=== PATIENT | female | born 1980 | race Caucasian/White ===

== ENCOUNTER 2018-04-15 12:43 | Observation (INO) | payer BC ==
[2018-04-15 13:42] LABS: Absolute Lymphocytes (CBC) 2.4 K/uL (0.7-4.9); Absolute Monocytes 0.5 K/uL (0.1-1.3); Absolute Neutrophil 5.3 K/uL (1.8-8.0); Basophils % 0.3 % (0-1.3); Eosinophils % 1.1 % (0-4.4); Hematocrit 34.7 % (36.0-45.0); Lymphocytes % 29.1 % (15.3-44.8); MCH 27.5 pg (27.0-35.0); MCV 79.3 fL (80-100); MPV 6.7 fL (7.6-11.3); Monocytes % 5.6 % (3.3-12.3); RBC Red Blood Cell Count 4.38 M/uL (3.86-4.86)
[2018-04-15] MEDS ORDERED: FENTANYL CITR 100 MCG/2 ML ONE (13:55)
[2018-04-15] MEDS ORDERED: ASPIRIN 81 MG CHEWABLE TABLET ONE (13:55)
[2018-04-15] MEDS ORDERED: ONDANSETRON 4 MG/2 ML VIAL ONE (13:55)
[2018-04-15 14:11] LABS: Urine Blood TRACE (NEG); Urine Glucose NEGATIVE (NEG); Urine Protein NEGATIVE (NEG); Urine Specific Gravity 1.015 (1.005-1.030); Urine pH 6.5 (5.0-7.0)
[2018-04-15 14:14] LABS: ALT/SGPT 24 U/L (12-78); AST/SGOT 25 U/L (15-37); Albumin 3.2 g/dL (3.4-5.0); Alkaline Phosphatase 116 U/L (45-117); BUN Blood Urea Nitrogen 13 mg/dL (7-18); Bicarbonate 25 mmol/L (21-32); Bilirubin Direct < 0.1 mg/dL (0-0.2); Bilirubin Total 0.2 mg/dL (0.2-1.0); Glucose Level 110 mg/dL (74-106); Magnesium 2.1 mg/dL (1.8-2.4); NT PRO-BNP 174 pg/mL (<125); Potassium 3.7 mmol/L (3.5-5.1); Protein, Total 7.1 g/dL (6.4-8.2); Sodium Level 140 mmol/L (136-145)
[2018-04-15 14:29] LABS: Protime INR 0.96
--- NOTE | 2018-04-15 15:12 | ER ---
Nurse's Notes [facility] Name: Argelia Allan Age: 37 yrs Sex: Female : 1980 Arrival Date: 04/15/2018 Time: 12:43 Bed 23 Private MD: Lisette Calero K Diagnosis: Chest pain, unspecified Presentation: 04/15 12:52 Presenting complaint: Patient states: Sharp left sided chest pain that radiates to left hb arm and nausea that started approx 20 mins ago while driving. Transition of care: patient was not received from another setting of care. Onset of symptoms was April 15, 2018. Risk Assessment: Do you want to hurt yourself or someone else? Patient reports no desire to harm self or others. Care prior to arrival: None. 12:52 Method Of Arrival: Ambulatory hb 12:52 Acuity: ESTELA 3 hb 13:00 Initial Sepsis Screen: Does the patient meet any 2 criteria? No. Patient's initial kr2 sepsis screen is negative. Does the patient have a suspected source of infection? No. Patient's initial sepsis screen is negative. NETWORK MANAGER: 15:58 LMP N/A - control method kr2 Historical: - Allergies: 12:53 No Known Allergies; hb - Home Meds: 12:53 None [Active]; hb - PMHx: 12:53 None; hb - PSHx: 12:53 ; Tonsillectomy; foot - left; thyroid; hb - Immunization history:: Adult Immunizations up to date. - Social history:: Smoking status: Patient/guardian denies using tobacco. - Ebola Screening: : No symptoms or risks identified at this time. Screenin:00 Abuse screen: Denies threats or abuse. Denies injuries from another. Nutritional kr2 screening: No deficits noted. Tuberculosis screening: No symptoms or risk factors identified. Fall Risk None identified. Assessment: 13:00 General: Appears in no apparent distress. uncomfortable, obese, well groomed, well kr2 developed, Behavior is calm, cooperative, appropriate for age. Pain: Complains of pain in anterior aspect of left upper chest Pain radiates to anterior aspect of left shoulder and left bicep Pain currently is 6 out of 10 on a pain scale. Quality of pain is described as sharp, Pain began 30 min ago. Is continuous, Alleviated by nothing. Neuro: Level of Consciousness is awake, alert, obeys commands, Oriented to person, place, time, situation. Cardiovascular: Heart tones S1 S2 Capillary refill < 3 seconds in bilateral fingers Patient's skin is warm and dry. Rhythm is sinus rhythm. Respiratory: Airway is patent Respiratory effort is even, unlabored, Respiratory pattern is regular, symmetrical. GI: Abdomen is flat, non-distended. : Urine is clear. EENT: Oral mucosa is moist. Derm: Skin is intact, is healthy with good turgor, Skin is pink, warm \T\ dry. Musculoskeletal: Circulation, motion, and sensation intact. 14:08 Reassessment: Patient appears in no apparent distress at this time. Patient and/or kr2 family updated on plan of care and expected duration. Pain level reassessed. Patient is alert, oriented x 3, equal unlabored respirations, skin warm/dry/pink. 15:05 Reassessment: Patient appears in no apparent distress at this time. Patient and/or kr2 family updated on plan of care and expected duration. Pain level reassessed. Patient sleeping at this time. Vital Signs: 12:52 BP 127 / 86; Pulse 71; Resp 14; Temp 97.5; Pulse Ox 100% on R/A; Pain 6/10; hb 14:00 BP 112 / 68 LA Sitting (auto/reg); Pulse 55; Resp 17 S; Pulse Ox 99% on R/A; jp3 14:09 BP 112 / 68; Pulse 64; Resp 14; Pulse Ox 97% on R/A; kr2 15:53 BP 105 / 63; Pulse 64; Resp 15; Temp 97.7; Pulse Ox 98% on R/A; kr2 ED Course: 12:43 Patient arrived in ED. sb2 12:44 Lisette Calero MD is Private Physician. sb2 12:52 Triage completed. hb 12:53 Arm band placed on right wrist. hb 12:54 Aleja Coyle RN is Primary Nurse. kr2 13:00 Patient maintains SpO2 saturation greater than 95% on room air. kr2 13:07 Martín Fuentes PA is PHCP. jr8 13:07 Juan Marina MD is Attending Physician. jr8 13:15 Urine collected: clean catch specimen, clear, travis colored. jp3 13:25 Initial lab(s) drawn, by me, sent to lab. Inserted saline lock: 22 gauge in right jp3 forearm, using aseptic technique. Blood collected. 13:37 Placed in gown. Bed in low position. Call light in reach. Side rails up X 1. jp3 13:37 Warm blanket given. Pillow given. jp3 13:47 Pulse ox on. NIBP on. jp3 14:38 Troponin (emerg Dept Use Only) Sent. jp3 14:38 PT-INR Sent. jp3 14:38 NT PRO-BNP Sent. jp3 14:38 Magnesium Sent. jp3 14:39 Basic Metabolic Panel Sent. jp3 14:39 CBC with Diff Sent. jp3 14:39 LFT's Sent. jp3 14:59 X-ray completed. Portable x-ray completed in exam room. Patient tolerated procedure jb2 well. 15:12 Raúl North DO is Hospitalizing Provider. jr8 15:57 No provider procedures requiring assistance completed. Patient admitted, IV remains in kr2 place. Administered Medications: 14:04 Drug: Aspirin Chewable Tablet 324 mg Route: PO; kr2 15:53 Follow up: Response: No adverse reaction kr2 14:04 Drug: fentaNYL (PF) 25 mcg Route: IVP; Site: right forearm; kr2 14:30 Follow up: Response: No adverse reaction; Pain is decreased kr2 14:05 Drug: Zofran 4 mg Route: IVP; Site: right forearm; kr2 14:30 Follow up: Response: No adverse reaction; Nausea is decreased kr2 Outcome: 15:12 Decision to Hospitalize by Provider. jr8 15:58 Admitted to Tele accompanied by [facility], via wheelchair, room 205, with chart, Report kr2 called to Maeve 15:58 Condition: stable 15:58 Instructed on the need for admit, Demonstrated understanding of instructions. 15:59 Patient left the ED. kr2 Signatures: Michael Patel jb2 Martín Fuentes PA PA jr8 Rachel Murillo, RN RN Aleja Mcgrath RN RN kr2 Malika Patrick sb2 Reji Shelton jp3 Corrections: (The following items were deleted from the chart) 15:52 15:52 Response: No adverse reaction; Pain is decreased kr2 kr2
--- NOTE | 2018-04-15 15:12 | EDPHYS ---
Physician Documentation [facility] Name: Argelia Allan Age: 37 yrs Sex: Female : 1980 Arrival Date: 04/15/2018 Time: 12:43 Bed 23 Private MD: Lisette Calero K ED Physician Juan Marina HPI: 04/15 13:28 This 37 yrs old Female presents to ER via Ambulatory with complaints of Chest jr8 Pain. 13:28 The patient or guardian reports chest pain that is located primarily in the anterior jr8 chest wall, left. The pain radiates to the left arm. Associated signs and symptoms: Pertinent positives: dizziness, nausea. The chest pain is described as squeezing, stabbing. Duration: The patient or guardian reports a single episode, that is still ongoing, that lasted 45 minute(s). Modifying factors: The symptoms are alleviated by nothing. the symptoms are aggravated by nothing. Severity of pain: At its worst the pain was moderate in the emergency department the pain has improved mildly. The patient has not experienced similar symptoms in the past. The patient has not recently seen a physician. Was at rest when pain started . BELL VALET: 15:58 LMP N/A - control method kr2 Historical: - Allergies: 12:53 No Known Allergies; hb - Home Meds: 12:53 None [Active]; hb - PMHx: 12:53 None; hb - PSHx: 12:53 ; Tonsillectomy; foot - left; thyroid; hb - Immunization history:: Adult Immunizations up to date. - Social history:: Smoking status: Patient/guardian denies using tobacco. - Ebola Screening: : No symptoms or risks identified at this time. ROS: 13:28 Eyes: Negative for injury, pain, redness, and discharge, ENT: Negative for injury, jr8 pain, and discharge, Neck: Negative for injury, pain, and swelling, Respiratory: Negative for shortness of breath, cough, wheezing, and pleuritic chest pain, Abdomen/GI: Negative for abdominal pain, nausea, vomiting, diarrhea, and constipation, Back: Negative for injury and pain, MS/Extremity: Negative for injury and deformity, Skin: Negative for injury, rash, and discoloration. 13:28 Cardiovascular: Positive for chest pain, Negative for edema, orthopnea, palpitations, paroxysmal nocturnal dyspnea. 13:28 Neuro: Positive for dizziness, Negative for altered mental status, gait disturbance, headache, hearing loss, loss of consciousness, numbness, seizure activity, speech changes, syncope, near syncope, tingling, tinnitus, tremor, visual changes, weakness. Exam: 13:28 Eyes: Pupils equal round and reactive to light, extra-ocular motions intact. Lids and jr8 lashes normal. Conjunctiva and sclera are non-icteric and not injected. Cornea within normal limits. Periorbital areas with no swelling, redness, or edema. ENT: Nares patent. No nasal discharge, no septal abnormalities noted. Tympanic membranes are normal and external auditory canals are clear. Oropharynx with no redness, swelling, or masses, exudates, or evidence of obstruction, uvula midline. Mucous membranes moist. Neck: Trachea midline, no thyromegaly or masses palpated, and no cervical lymphadenopathy. Supple, full range of motion without nuchal rigidity, or vertebral point tenderness. No Meningismus. Chest/axilla: Normal chest wall appearance and motion. Nontender with no deformity. No lesions are appreciated. Cardiovascular: Regular rate and rhythm with a normal S1 and S2. No gallops, murmurs, or rubs. Normal PMI, no JVD. No pulse deficits. Respiratory: Lungs have equal breath sounds bilaterally, clear to auscultation and percussion. No rales, rhonchi or wheezes noted. No increased work of breathing, no retractions or nasal flaring. Abdomen/GI: Soft, non-tender, with normal bowel sounds. No distension or tympany. No guarding or rebound. No evidence of tenderness throughout. Back: No spinal tenderness. No costovertebral tenderness. Full range of motion. Skin: Warm, dry with normal turgor. Normal color with no rashes, no lesions, and no evidence of cellulitis. MS/ Extremity: Pulses equal, no cyanosis. Neurovascular intact. Full, normal range of motion. Neuro: Awake and alert, GCS 15, oriented to person, place, time, and situation. Cranial nerves II-XII grossly intact. Motor strength 5/5 in all extremities. Sensory grossly intact. Cerebellar exam normal. Normal gait. Vital Signs: 12:52 BP 127 / 86; Pulse 71; Resp 14; Temp 97.5; Pulse Ox 100% on R/A; Pain 6/10; hb 14:00 BP 112 / 68 LA Sitting (auto/reg); Pulse 55; Resp 17 S; Pulse Ox 99% on R/A; jp3 14:09 BP 112 / 68; Pulse 64; Resp 14; Pulse Ox 97% on R/A; kr2 15:53 BP 105 / 63; Pulse 64; Resp 15; Temp 97.7; Pulse Ox 98% on R/A; kr2 MDM: 13:[address] [facility] 15:11 HEART Score: History: Moderately Suspicious (1), ECG: Normal (0), Age: < or = [address] [facility] (0), Risk Factors: 1 or 2 risk factors (1), [+ Family HX] [Obesity] Troponin: < or = 1 x Normal Limit (0). Data reviewed: vital signs, nurses notes, lab test result(s), EKG, radiologic studies, plain films, and as a result, I will admit patient. Data interpreted: Pulse oximetry: on room air is 97 %. Interpretation: normal. Counseling: I had a detailed discussion with the patient and/or guardian regarding: the historical points, exam findings, and any diagnostic results supporting the discharge/admit diagnosis, lab results, radiology results, the need for further work-up and treatment in the hospital. 04/15 13:15 Order name: Urine Dipstick--Ancillary (enter results) 04/15 13:16 Order name: Basic Metabolic Panel [facility] 04/15 13:16 Order name: CBC with Diff [facility] 04/15 13:16 Order name: LFT's [facility] 04/15 13:16 Order name: Magnesium [facility] 04/15 13:16 Order name: NT PRO-BNP [facility] 04/15 13:16 Order name: PT-INR [facility] 04/15 13:16 Order name: Troponin (emerg Dept Use Only) [facility] 04/15 13:47 Order name: CBC with Automated Diff; Complete Time: 13:49 EDMS 04/15 14:09 Order name: Test, Urine; Complete Time: 14:52 EDMS 04/15 14:11 Order name: Urine Dipstick-Ancillary; Complete Time: 14:52 EDMS 04/15 14:11 Order name: Troponin (Emerg Dept Use Only); Complete Time: 14:52 EDMS 04/15 14:14 Order name: Basic Metabolic Panel; Complete Time: 14:52 EDMS 04/15 14:14 Order name: Liver (Hepatic) Function; Complete Time: 14:52 EDMS 04/15 13:16 Order name: XRAY Chest (1 view) [facility] 04/15 13:16 Order name: EKG; Complete Time: 13:17 [facility] 04/15 13:16 Order name: Cardiac monitoring; Complete Time: 13:46 [facility] 04/15 13:16 Order name: EKG - Nurse/Tech; Complete Time: 13:46 04/15 13:16 Order name: IV Saline Lock; Complete Time: 13:46 [facility] 04/15 13:16 Order name: Labs collected and sent; Complete Time: 13:46 [facility] 04/15 13:16 Order name: O2 Per Protocol; Complete Time: 13:46 04/15 13:16 Order name: O2 Sat Monitoring; Complete Time: 13:46 [facility] 04/15 13:16 Order name: Urine Dipstick-Ancillary (obtain specimen); Complete Time: 13:47 04/15 13:16 Order name: Urine Test (obtain specimen); Complete Time: 14:21 [facility] 04/15 14:14 Order name: NT PRO-BNP; Complete Time: 14:52 EDMS 04/15 14:14 Order name: Magnesium; Complete Time: 14:52 EDMS 04/15 14:31 Order name: Protime (+INR); Complete Time: 14:52 EDMS Administered Medications: 14:04 Drug: Aspirin Chewable Tablet 324 mg Route: PO; kr2 15:53 Follow up: Response: No adverse reaction kr2 14:04 Drug: fentaNYL (PF) 25 mcg Route: IVP; Site: right forearm; kr2 14:30 Follow up: Response: No adverse reaction; Pain is decreased kr2 14:05 Drug: Zofran 4 mg Route: IVP; Site: right forearm; kr2 14:30 Follow up: Response: No adverse reaction; Nausea is decreased kr2 Disposition: 19:06 Co-signature as Attending Physician, Juan Marina MD. rn Disposition: 04/15/18 15:12 Hospitalization ordered by Raúl North for Observation. Preliminary diagnosis is Chest pain, unspecified. - Bed requested for Telemetry/MedSurg (observation). - Status is Observation. kr2 - Condition is Stable. - Problem is new. - Symptoms have improved. UTI on Admission? No Signatures: Dispatcher [employer] EDDominique Christina RN RN dw Juan Marina MD MD rn Roszak, Josh, PA PA jr8 Rachel Murillo RN RN Aleja Coyle RN RN kr2 Corrections: (The following items were deleted from the chart) 15:41 15:12 Hospitalization Ordered by Raúl North DO for Observation. Preliminary dw diagnosis is Chest pain, unspecified. Bed requested for Telemetry/MedSurg (observation). Status is Observation. Condition is Stable. Problem is new. Symptoms have improved. UTI on Admission? No. jr8 15:59 15:41 04/15/2018 15:12 Hospitalization Ordered by Raúl North DO for Observation. kr2 Preliminary diagnosis is Chest pain, unspecified. Bed requested for Telemetry/MedSurg (observation). Status is Observation. Condition is Stable. Problem is new. Symptoms have improved. UTI on Admission? No. dw
[2018-04-15] MEDS ORDERED: TRAMADOL HCL 50 MG TAB PO PRN (15:18)
[2018-04-15] MEDS ORDERED: ACETAMINOPHEN 500 MG TAB PO PRN (15:18)
[2018-04-15] MEDS ORDERED: ONDANSETRON 4 MG/2 ML VIAL IV PRN (15:18)
[2018-04-15] MEDS ORDERED: HYDROCODONE/APAP 7.5/325 MG TAB PO PRN (15:18)
--- NOTE | 2018-04-15 15:28 | P.HP ---
Certification for Inpatient Patient admitted to: Observation With expected LOS: <2 Midnights Patient will require the following post-hospital care: None Practitioner: I am a practitioner with admitting privileges, knowledge of patient current condition, hospital course, and medical plan of care. Services: Services provided to patient in accordance with Admission requirements found in Title 42 Section 412.3 of the Code of Federal Regulations Patient History Date of Service: 04/15/18 Primary Care Provider: Dr. Calero Reason for admission: Chest pain History of Present Illness: 37-year-old female presented emergency room with chest pain. This started this afternoon. It was mainly to the left chest side area. Pain would moved to the left arm with notable left arm numbness. The pain was a tightness. He was associated with some shortness of breath, nausea. She did feel somewhat dizzy at the time of chest pain. She came to the ER for further evaluation. In the ER patient was evaluated. Initial EKG unremarkable. Cardiac enzymes unremarkable. Due to the nature of her symptoms the patient was admitted for observation. When I saw the patient ER, she appeared comfortable. There is a family history of heart disease. She does not smoke. She drinks occasionally. Allergies No Known Allergies Allergy (Verified 01/28/13 05:57) Home medications list reviewed: Yes Home Medications: Ferrous Sulfate [Iron] 325 mg PO DAILY 01/28/13 Pnv Cmb#95/Ferrous Fumarate/FA [ Tablet] 1 each PO DAILY 01/28/13 Ranitidine [Zantac*] 150 mg PO BID 01/28/13 - Past Medical/Surgical History Diabetic: No Past Medical History: Patient denies medical history -: Tonsillectomy -: Foot surgery -: x2 -: Partial thyroidectomy Psychosocial/ Personal History: The patient is . She has 2 children. She works at a tennis camp instructor's office - Family History Father -: Diabetes Mother -: Heart disease - Social History Smoking Status: Never smoker Alcohol use: No CD- Drugs: No Caffeine use: Yes Place of Residence: Home Review of Systems General: As per HPI Eyes: Unremarkable ENT: Unremarkable Respiratory: Shortness of Breath, As per HPI Cardiovascular: Chest Pain, As per HPI Gastrointestinal: Nausea, As per HPI Genitourinary: Unremarkable Musculoskeletal: Unremarkable Integumentary: Unremarkable Neurological: Unremarkable Lymphatics: Unremarkable Physical Examination - Physical Exam General: Alert, In no apparent distress, Oriented x3, Cooperative HEENT: Atraumatic, Normocephalic, PERRLA, Mucous membr. moist/pink Neck: Supple, No Thyromegaly Respiratory: Clear to auscultation bilaterally, Normal air movement Cardiovascular: Normal pulses, Regular rate/rhythm Gastrointestinal: Normal bowel sounds, Soft and benign, Non-distended, No tenderness, No masses, No rebound, No guarding Musculoskeletal: No erythema, No tenderness, No warmth Integumentary: No tenderness/swelling, No erythema, No warmth, No cyanosis Neurological: Normal speech, Normal strength at 5/5 x4 extr, Normal tone, Normal affect Lymphatics: No axilla or inguinal lymphadenopathy - Studies Laboratory Data (last 24 hrs) 04/15/18 13:25: PT 11.3, INR 0.96 04/15/18 13:25: WBC 8.3, Hgb 12.0, Hct 34.7 L, Plt Count 269 04/15/18 13:25: Sodium 140, Potassium 3.7, BUN 13, Creatinine 0.70, Glucose 110 H, Magnesium 2.1, Total Bilirubin 0.2, AST 25, ALT 24, Alkaline Phosphatase 116 Assessment and Plan - Problems (Diagnosis) (1) Chest pain Current Visit: Yes Status: Acute Plan: Patient will be admitted for further evaluation. Will continue cardiac enzymes , telemetry. Will order echocardiogram. Cardiology consulted to further assess. Qualifiers: Chest pain type: unspecified Qualified Code(s): R07.9 - Chest pain, unspecified (2) Obesity Current Visit: Yes Status: Chronic Plan: Will calculate BMI. Will address lifestyle modification education. Discharge Plan: Home - Advance Directives Does patient have a Living Will: No Does patient have a Durable POA for Healthcare: No - Code Status/Comfort Care Code Status Assessed: Yes Time Spent Managing Pts Care (In Minutes): 55
[2018-04-15 16:13] VITALS: BMI 38.7
[2018-04-15] MEDS: NA CHLORIDE 0.9% 1,000 ML IV SCH (16:47)
[2018-04-15] MEDS: ENOXAPARIN 40 MG/0.4 ML SQ SCH (16:47)
[2018-04-15] MEDS ORDERED: POTASSIUM 25 MEQ EFFERV TAB PO ONE (17:00)
[2018-04-15 17:01] LABS: Urine Appearance CLEAR; Urine Bilirubin NEGATIVE (NEG); Urine Blood NEGATIVE (NEG); Urine Color YELLOW; Urine Glucose NEGATIVE (NEG); Urine Protein NEGATIVE (NEG); Urine Urobilinogen 0.2 mg/dL (0.2-1.0)
--- NOTE | 2018-04-15 17:06 | ECHO ---
HEIGHT: 5 ft 4 in WEIGHT: 225 lb 12.8 oz DATE OF STUDY: 04/15/[address]: Raúl North DO 2-DIMENSIONAL: YES M.MODE: YES DOPPLER: YES COLOR FLOW: YES TDS: PORTABLE: YES DEFINITY: BUBBLE STUDY: DIAGNOSIS: CHEST PAIN CARDIAC HISTORY: CATHERIZATION: NO SURGERY: NO PROSTHETIC VALVE: NO PACEMAKER: NO MEASUREMENTS (cm) DIASTOLIC (NORMALS) SYSTOLIC (NORMALS) IVSd 0.9 (0.6-1.2) LA Diam 3.0 (1.9-4.0) LVEF 60% LVIDd 3.7 (3.5-5.7) LVIDs 2.5 (2.0-3.5) %FS 31% LVPWd 0.9 (0.6-1.2) Ao Diam 2.7 (2.0-3.7) 2 DIMENSIONAL ASSESSMENT: RIGHT ATRIUM: NORMAL LEFT ATRIUM: NORMAL RIGHT VENTRICLE: NORMAL LEFT VENTRICLE: NORMAL TRICUSPID VALVE: NORMAL MITRAL VALVE: NORMAL PULMONIC VALVE: NORMAL AORTIC VALVE: NORMAL PERICARDIAL EFFUSION: NONE AORTIC ROOT: NORMAL LEFT VENTRICULAR WALL MOTION: NORMAL DOPPLER/COLOR FLOW: NORMAL COMMENTS: NORMAL TWO DIMENSIONAL ECHOCARDIOGRAM WITH DOPPLER. TECHNOLOGIST: WEN PIZANO
[2018-04-15 17:46] LABS: Urine Microscopic Reflex NO UMIC
--- NOTE | 2018-04-15 17:57 | RAD REPORT ---
EXAM DESCRIPTION: [place] Single View04/15/2018 3:02 pm CLINICAL HISTORY: Chest pain COMPARISON: none FINDINGS: The lungs appear clear of acute infiltrate. The heart is normal size IMPRESSION: No acute abnormalities displayed
--- NOTE | 2018-04-15 18:21 | EKG ---
Test Date: 2018-04-15 Test Time: 13:02:22 Building Maintenance Mechanic: SHAHEEN MEASUREMENT RESULTS: Intervals: Rate: 63 MD: 154 QRSD: 100 QT: 408 QTc: 417 [place]: P: 29 MD: 154 QRS: 28 T: 48 INTERPRETIVE STATEMENTS: Normal sinus rhythm Normal ECG No previous ECG available for comparison Electronically Signed On 04-15-18 18:20:41 CDT by Madan Maguire
[2018-04-15] MEDS ORDERED: ATORVASTATIN 40 MG TAB PO SCH (21:00)
[2018-04-16 00:28] LABS: CKMB Creatine Kinase MB < 1.0 ng/mL (0.3-3.6); Creatine Phosphokinase 80 U/L (26-192)
--- NOTE | 2018-04-16 01:42 | CON ---
Identification: A 37-year-old woman. Chief Complaint: Chest pain. History Of Present Illness: Ms. Allan started having chest pain, central part of her chest, numerou s episodes, sharp pains, went away, then she has had various pressures, so she came to the hospital. She has been in the hospital for about 12 hours. The EKGs and cardiac enzymes were normal. The pat donald does not have diabetes, hypertension, dyslipidemia. Uses no tobacco. She is 2, para 2, with C-sections and a tubal ligation. Medications: She takes no home medications. Social History: She uses no tobacco. Rare alcohol. No illegal drugs. Physical Examination: Vital signs: 5 feet 4, 225 pounds. HEENT: Normal. Carotids: No bruit. Lungs: Clear. Cardiac: Normal. Abdomen: Soft. Extremities: Normal. No cyanosis, clubbing, or edema. Diagnostic Data: An echocardiogram is normal and electrocardiograms do not show infarction, injury, or ischemia. I will recommend that the patient do a stress test tomorrow, will be an EKG stress test. If that is normal, she should be discharged. Do an outpatient workup for noncardiac causes of chest pain. It s eems more likely to be due to gallstones or gastritis than heart at this point. JESSA Voice ID: [id number] Report ID: [id number]
[2018-04-16] MEDS: NA CHLORIDE 0.9% 1,000 ML IV SCH ×2 (02:38→13:18)
[2018-04-16 06:15] LABS: Absolute Monocytes 0.4 K/uL (0.1-1.3); Absolute Neutrophil 3.8 K/uL (1.8-8.0); Basophils % 0.3 % (0-1.3); Eosinophils % 1.5 % (0-4.4); Hematocrit 33.6 % (36.0-45.0); MCH 27.9 pg (27.0-35.0); MCV 79.3 fL (80-100); MPV 6.8 fL (7.6-11.3); Monocytes % 5.8 % (3.3-12.3); RBC Red Blood Cell Count 4.23 M/uL (3.86-4.86)
[2018-04-16 07:09] LABS: BUN Blood Urea Nitrogen 12 mg/dL (7-18); Bicarbonate 27 mmol/L (21-32); CKMB Creatine Kinase MB < 1.0 ng/mL (0.3-3.6); Creatine Phosphokinase 69 U/L (26-192); Glucose Level 84 mg/dL (74-106); HDL Cholesterol 39 mg/dL (40-60); LDL Cholesterol, Calculated 100 (<130); Potassium 4.1 mmol/L (3.5-5.1); Sodium Level 140 mmol/L (136-145)
[2018-04-16] MEDS ORDERED: PANTOPRAZOLE 40MG TABLET PO SCH (07:30)
[2018-04-16 08:46] VITALS: O2SAT 97
[2018-04-16] MEDS ORDERED: ASPIRIN EC 81 MG TAB PO SCH (09:00)
[2018-04-16 09:34] VITALS: TEMP 97.5
[2018-04-16] MEDS: ENOXAPARIN 40 MG/0.4 ML SQ SCH (09:54)
--- NOTE | 2018-04-16 11:12 | P.DS ---
Admission Date: 04/15/18 Discharge Date: 04/16/18 Primary Care Provider: Dr. Calero Disposition: ROUTINE DISCHARGE Discharge Condition: GOOD Reason for Admission: Chest pain Consultations: Cardiology-Dr. Maguire Procedures: Echocardiogram: Ejection fraction 60%. Otherwise unremarkable. Cardiac stress test: IMPRESSION: ROUTINE TIFF STOPPED DUE TO TARGET HEART RATE BEING REACHED. NO CHEST PAIN. NO VENTRICULAR TACHYCARDIA. NO SUPRAVENTRICULAR TACHYCARDIA. NO ST DEPRESSION WITH STRESS. - Problems (1) Chest pain Onset Date: 04/16/18 Current Visit: Yes Status: Acute Qualifiers: Chest pain type: unspecified Qualified Code(s): R07.9 - Chest pain, unspecified (2) Obesity Onset Date: 04/16/18 Current Visit: Yes Status: Chronic Qualifiers: Obesity type: due to excess calories Obesity classification: adult class 2 (BMI 35 - 39.9) Serious obesity comorbidity presence: with serious comorbidity Body mass index: BMI 38.0-38.9 Qualified Code(s): E66.01 - Morbid (severe) obesity due to excess calories; Z68.38 - Body mass index (BMI) 38.0-38.9, adult (3) GERD (gastroesophageal reflux disease) Current Visit: Yes Status: Suspected Qualifiers: Esophagitis presence: esophagitis presence not specified Qualified Code(s) : K21.9 - Gastro-esophageal reflux disease without esophagitis (4) Abnormal TSH Current Visit: Yes Status: Acute (5) History of partial thyroidectomy Current Visit: Yes Status: Chronic Brief History of Present Illness: 37-year-old female presented emergency room with chest pain. This started this afternoon. It was mainly to the left chest side area. Pain would moved to the left arm with notable left arm numbness. The pain was a tightness. He was associated with some shortness of breath, nausea. She did feel somewhat dizzy at the time of chest pain. She came to the ER for further evaluation. In the ER patient was evaluated. Initial EKG unremarkable. Cardiac enzymes unremarkable. Due to the nature of her symptoms the patient was admitted for observation. When I saw the patient ER, she appeared comfortable. There is a family history of heart disease. She does not smoke. She drinks occasionally. Hospital Course: The patient did well in the course of her stay. Chest pain resolved. Patient evaluated by Cardiology. Cardiology recommended echocardiogram and cardiac stress test. Echocardiogram normal with ejection fraction of 60%. Cardiac stress test showed no stress-induced ischemia, patient was able to perform exercise stress tests. Chest pain may be GI related likely GERD. At discharge she may continue with aspirin 81 mg daily. Recommendation is to continue with Protonix 40 mg 1 pill once daily. Recommendation is for the patient to follow up with GI as an outpatient to consider endoscopy evaluation. Patient with history of partial thyroidectomy in the past. Tsh slightly abnormal at 8.1. Free T4 normal at 0.7. Recommendation is to recheck lab-tsh and free T4 in 2-4 weeks. If still abnormal patient may need medication. Patient may benefit with endocrinology evaluation as an outpatient. Lifestyle modification education will be provided. Vital Signs/Physical Exam: Temp Pulse Resp BP Pulse Ox 97.5 F 68 17 106/64 97 04/16/18 08:00 04/16/18 08:00 04/16/18 08:00 04/16/18 08:00 04/16/18 08:00 General: Alert, In no apparent distress, Oriented x3, Cooperative HEENT: Atraumatic Neck: Supple Respiratory: Clear to auscultation bilaterally, Normal air movement Cardiovascular: Normal pulses, Regular rate/rhythm Gastrointestinal: Normal bowel sounds, Soft and benign, Non-distended, No tenderness, No masses, No rebound, No guarding Musculoskeletal: No erythema, No tenderness, No warmth Integumentary: No tenderness/swelling, No erythema, No warmth, No cyanosis Neurological: Normal speech, Normal strength at 5/5 x4 extr, Normal tone, Normal affect Laboratory Data at Discharge: WBC 7.3 K/uL (4.3-10.9) 04/16/18 05:49 Hgb 11.8 g/dL (12.0-15.0) L 04/16/18 05:49 Hct 33.6 % (36.0-45.0) L 04/16/18 05:49 Plt Count 245 K/uL (152-406) 04/16/18 05:49 PT 11.3 SECONDS (9.5-12.5) 04/15/18 13:25 INR 0.96 04/15/18 13:25 Sodium 140 mmol/L (136-145) 04/16/18 05:49 Potassium 4.1 mmol/L (3.5-5.1) 04/16/18 05:49 BUN 12 mg/dL (7-18) 04/16/18 05:49 Creatinine 0.60 mg/dL (0.55-1.3) 04/16/18 05:49 Glucose 84 mg/dL (74-106) 04/16/18 05:49 Magnesium 2.0 mg/dL (1.8-2.4) 04/16/18 05:49 Total Bilirubin 0.2 mg/dL (0.2-1.0) 04/15/18 13:25 AST 25 U/L (15-37) 04/15/18 13:25 ALT 24 U/L (12-78) 04/15/18 13:25 Alkaline Phosphatase 116 U/L (45-117) 04/15/18 13:25 Troponin I < 0.02 ng/mL (0.0-0.045) 04/16/18 05:49 Triglycerides 132 mg/dL (<150) 04/16/18 05:49 Cholesterol 165 mg/dL (<200) 04/16/18 05:49 HDL Cholesterol 39 mg/dL (40-60) L 04/16/18 05:49 Cholesterol/HDL Ratio 4.23 04/16/18 05:49 Home Medications: Pantoprazole [Protonix Tab*] 40 mg PO DAILY #30 tab 04/16/18 New Medications: Pantoprazole [Protonix Tab*] 40 mg PO DAILY #30 tab Patient Discharge Instructions: 1. Patient will need a follow up with a PCP in 1 week to follow up this hospitalization. 2. Patient presented with chest pain Patient seen and evaluated by Cardiology. Echocardiogram was normal with ejection fraction of 60%. Cardiac stress test showed no stress-induced ischemia , patient able to perform exercise stress test. Chest pain likely GI related. Patient may have underlying GERD. Recommendation is to continue with Protonix 40 mg 1 pill once daily. Recommendation is for the patient to follow up with GI as an outpatient to consider endoscopy evaluation. 3. Patient with history of partial thyroidectomy in the past. Tsh slightly abnormal with normal free T4. Recommendation to recheck lab-tsh and free T4 in 2-4 weeks to monitor and address. Patient may require medication. Recommendation includes endocrinology evaluation as an outpatient. 4. Lifestyle modification education will be provided. Diet: AHA Activity: Ad lynn Followup: Lisette Calero MD [Primary Care Provider] - Time spent managing pt's care (in minutes): 55
--- NOTE | 2018-04-16 13:16 | TREADMILL ---
70% H.R.: 128 85% H.R.: 156 90% H.R.: 165 100% H.R.: 183 DX: CHEST PAIN Date of Study: 04/16/2018 Ht: 5 4 Wt: 225 lb 12.8 oz Consulting Physician: TAI MEDICATIONS: TYLENOL, NORCO, ASPIRIN, LIPITOR, LOVENOX, ZOFRAN, PROTONIX, ULTRAM HISTORY: 37 YEAR OLD FEMALE WITH COMPLAINTS OF CHEST PAIN. PHYSICIAL EXAMINATION: RESTING B.P.: 126/82 RESTING H.R.: 66 RESTING EKG: NORMAL PROTOCOL: TIFF ROUTINE EXERCISE TIME: 7:15 MAXIMUM HEART RATE: 181 % OF PREDICTED B.P. AT PEAK STRESS: 144/77 H.R. AT 1 MINUTE POST EXERCISE: 144 IMPRESSION: ROUTINE TIFF STOPPED DUE TO TARGET HEART RATE BEING REACHED. NO CHEST PAIN. NO VENTRICULAR TACHYCARDIA. NO SUPRAVENTRICULAR TACHYCARDIA. NO ST DEPRESSION WITH STRESS.
[2018-04-16 13:56] VITALS: BP 117/70
== END 2018-04-16 14:30 | disposition home or self-care (01) ==
LOC: ER 12:43 → ERHOLD 15:19 → 2ND 15:50
PROVIDERS: ADMIT Physician Assistant; ATTEND Family Medicine
DX: R07.9 Chest pain, unspecified (principal); Z82.49 Family history of ischemic heart disease and other diseases of the circulatory system; E66.9 Obesity, unspecified; Z68.38 Body mass index [BMI] 38.0-38.9, adult; R94.6 Abnormal results of thyroid function studies; E89.0 Postprocedural hypothyroidism
CPT/HCPCS: 36415; 71045; 80048; 80061; 80076; 81003; 81025; 82550; 82553; 83735; 83880; 84439; 84443; 84484; 85025; 85610; 93005; 93017; 93306; 96374; 96375; 99285; G0378; J1650; J2405; J3010; J7030